=== PATIENT | male | born 1960 | race Hispanic/Latino ===

== ENCOUNTER 2018-12-23 20:33 | Emergency (ER) | payer SELFPAY ==
[~2018-12-23] VITALS: Ht 162.6 cm; Wt 86.2 kg
[2018-12-23 21:04] LABS: HEMATOCRIT 40.6 % (39.0-50.0); IMMATURE GRANULOCYTES 0.6 % (0.0-5.0); MEAN CELL VOLUME 93.3 fL CALC (80.0-100.0); MEAN CORPUSCULAR HGB 32.2 pG CALC (26.0-32.0); MEAN CORPUSCULAR HGB CONC 34.5 g/L CALC (32.0-36.0); NEUT# 3.77 thou/uL (1.82-7.42); RED BLOOD COUNT 4.35 mill/uL (4.70-6.10); RED CELL DISTRI WIDTH 12.3 % (11.5-15.5)
[2018-12-23 21:21] LABS: ANION GAP 17 (6-22 (CALC)); BUN 13 mg/dL (9-20); BUN/CREATININE RATIO 19 (12-20 (CALC)); CARBON DIOXIDE 22 mmol/l (22-30); CHLORIDE 105 mmol/l (95-108); CREATININE 0.7 mg/dL (0.7-1.3); GFR > 60 ML/MIN (>=60 (CALC)); GFR FOR AFR.AMER. > 60 ML/MIN (>=60 (CALC)); POTASSIUM 3.5 mmol/l (3.5-5.1); SODIUM 141 mmol/l (137-146)
[2018-12-23 21:23] LABS: INTERNATIONAL NORMALIZED RATIO 1.1 RATIO (0.7-1.3); PROTHROMBIN TIME 11.1 SECONDS (9.0-12.5)
[2018-12-23] MEDS ORDERED: METO25TAB PO (22:19)
[2018-12-23] MEDS ORDERED: LISINOP/HCTZ1 TAB PO (22:19)
[2018-12-23] MEDS ORDERED: AMOXICILLIN500 MG PO (22:19)
[2018-12-23 23:05] VITALS: BP 155/88
== END 2018-12-23 23:05 | disposition home or self-care (01) | DRG 151 ==
LOC: ED 20:33
PROVIDERS: Family Medicine
PROC: 2Y41X5Z Packing of Nasal Region using Packing Material (ICD-10-PCS; principal; 2018-12-23)
DX: R04.0 Epistaxis (principal); I10 Essential (primary) hypertension

== ENCOUNTER 2018-12-26 17:22 | Emergency (ER) | payer SELFPAY ==
[~2018-12-26] VITALS: Ht 162.6 cm; Wt 85.0 kg
[~2018-12-26 17:22] MED LIST: AMOXICILLIN500 MG PO; LISINOP/HCTZ1 TAB PO; METO25TAB PO
[2018-12-26] MEDS ORDERED: LISINOP/HCTZ1 TAB PO (17:37)
[2018-12-26] MEDS ORDERED: METO25TAB PO (17:37)
[2018-12-26 17:45] VITALS: BP 161/72
== END 2018-12-26 17:45 | disposition home or self-care (01) | DRG 951 ==
LOC: ED 17:22
DX: Z48.00 Encounter for change or removal of nonsurgical wound dressing (principal); I10 Essential (primary) hypertension